=== PATIENT | male | born 2000 | race Asian ===

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

== ENCOUNTER 2019-08-17 12:29 | Inpatient (IN) | payer OTHER ==
[~2019-08-17] VITALS: Ht 182.9 cm; Wt 86.9 kg
[2019-08-17] VITALS (12 sets, daily range): BP systolic 134–159; BP diastolic 83–105; TEMP 97.7–99.5; Ht 182.9 cm; Wt 86.9 kg
[2019-08-17 14:11] LABS: PLATELET COUNT 274 K/uL (142-355); POTASSIUM 3.8 mmol/L (3.6-5.2)
--- NOTE | 2019-08-17 20:00 | NUR ---
PATIENT BROUGHT VIA WHEELCHAIR TO ROOM 1112. PATIENT ABLE TO AMBULATE TO THE BED AT THIS TIME. ADMISSION ASSESSMENT COMPLETED. NOTED PRESENT AN NGT TO THE RIGHT NARE CLAMPED AND SECURED WITH TAPE. IV 20G TO THE RIGHT AC SALINE LOCK WITH NO S/S OF INFILTRATION OF PHLEBITIS NOTED. PATIENT IS AOX4. PATIENT REPORTS PAIN TO THIS RIGHT LOWER QUADRANT. DENIES ANY N/V/D. EMESIS BAG AT THE BEDSIDE. MOTHER PRESENT AT THE BEDSIDE WELL. WILL CONTINUE TO MONITOR NEEDED.
--- NOTE | 2019-08-17 20:30 | NUR ---
REVIEWING LABS AND CHEST X-RAY RESULTS REGARDING PLACEMENT. NOTED WERE IMPRESSION READINGS BY RADIOLOGIST WHICH SHOW THAT GASTRIC TUBE IS LOOPED IN THE PROXIMAL ESOPHAGUS. RECOMMENDATION READJUSTING TUBE FURTHER AND FOLLOW UP WITH REPEAT CHEST X-RAY. PATIENT AND HIS MOTHER NOTIFIED ABOUT ADJUSTING NGT, MOTHER VERBALIZED UNDERSTANDING.
--- NOTE | 2019-08-17 21:30 | NUR ---
CURRENT NGT REMOVED THAT WAS INSERTED IN THE ER (10 F) WITH TIP INTACT. PATIENT INFORMED THAT CURRENT NG TUBE WAS NOT IN PLACE. PATIENT VOICED UNDERSTANDING.
--- NOTE | 2019-08-17 22:40 | NUR ---
PATIENT POSITION IN HIGH FOWLERS POSITION AND INSTRUCTED TO SIP WATER FROM CUP WHEN INSERTING NG TUBE. PATIENT VERBALIZED UNDERSTANDING. NG TUBE MEASURED PRIOR TO PLACEMENT. 16 F NG TUBE COVERED WITH LUBE AND INSERTED INTO THE RIGHT NARE.PATIENT WAS ABLE TO SWALLOW INSERTING THE NG TUBE WITHOUT DIFFICULTY. NG TUBE SECURED AND ASCULTATED ABDOMEN WHEN PUSHING 30 ML OF AIR FOR VERIFICATION. AIR MOVEMENT NOTED. NG TUBE CONNECTED TO LIWS WITH SOME CLEAR VISIBLE LIQUID NOTED ON RETURN. PATIENT TOLERATED WELL. STAT CHEST X-RAY FOR NG TUBE PLACEMENT ORDERED.
[2019-08-18] VITALS: BP 134/88; TEMP 99
[2019-08-18 04:00] VITALS: BP 137/80; TEMP 98.4
--- NOTE | 2019-08-18 04:30 | NUR ---
PATIENT NG TUBE CLAMPED AND PATIENT AMBULATED TO THE BATHROOM. PATIENT HAS HAD 2 WATERY BOWEL MOVEMENTS BROWN/GREENISH IN COLOR. PATIENT REPORTS NO NAUSEA AT THIS TIME. PATIENT SUPERVISED BACK TO THE BED AND PLACED BACK ON LIWS.
[2019-08-18 06:12] LABS: POTASSIUM 3.6 mmol/L (3.6-5.2)
[2019-08-18 06:17] LABS: PLATELET COUNT 232 K/uL (142-355)
[2019-08-18 20:00] VITALS: BP 113/69; TEMP 98
--- NOTE | 2019-08-18 21:30 | NUR ---
08/18/19 2000: PT SITTING ON COUCH. DENIES NAUSEA OR ABD PAIN.
[2019-08-19] VITALS: BP 123/71; TEMP 98.3
[2019-08-19 04:00] VITALS: BP 114/68; TEMP 98
--- NOTE | 2019-08-19 10:52 | NUR ---
PATIENTS IV HAS BEEN TAKEN OUT AND THE CATHITER OF THE IV IS INTACT. THE SITE IS CLEAN DRY AND INTACT. PATIENT AND MOTHER WERE GIVEN VERBAL AND PRINTED DISCHARGE INSTRUCTIONS
== END 2019-08-19 11:00 | disposition home or self-care (01) | DRG 390 ==
LOC: ED 12:29 → MED/SURG 18:32
PROVIDERS: Internal Medicine; ADMIT Emergency Medicine
PROC: 0D9670Z Drainage of Stomach with Drainage Device, Via Natural or Artificial Opening (ICD-10-PCS; principal; 2019-08-17)
DX: K56.690 Other partial intestinal obstruction (principal); R11.2 Nausea with vomiting, unspecified; R50.9 Fever, unspecified; J02.0 Streptococcal pharyngitis
CPT/HCPCS: 36415; 80048; 80053; 81000; 82150; 83690; 85027; 96360; 96375; 99284; J1885; J2270; J2405; Q9963

== ENCOUNTER 2022-11-11 22:46 | Emergency (ER) | payer OTHER ==
[~2022-11-11] VITALS: Ht 182.9 cm; Wt 93.0 kg
[2022-11-11 23:30] LABS: PLATELET COUNT 214 K/uL (142-355)
[2022-11-11 23:41] LABS: POTASSIUM 4.4 mmol/L (3.6-5.2)
[2022-11-12 01:00] VITALS: BP 121/81; TEMP 97.9
== END 2022-11-12 01:05 | disposition home or self-care (01) ==
LOC: ED 22:46
PROVIDERS: Emergency Medicine
DX: K52.89 Other specified noninfective gastroenteritis and colitis (principal); E86.0 Dehydration
CPT/HCPCS: 36415; 80053; 85027; 96361; 96374; 99284; J2405